=== PATIENT | male | born 1955 | race Caucasian/White ===

== ENCOUNTER 2019-04-07 05:35 | Inpatient (IN) | payer OTHER ==
[~2019-04-07 05:35] MED LIST: Buffered Lidocaine 1% SYRIN* 1 ML/SYRINGE INTRADERM ONE
--- OUTSIDE RECORDS SUMMARY | 2019-04-07 05:38 | XMS REPORT | Continuity of Care Document ---
:1955 External Reference #:[id number] Author Name Chuck Rodriguez DO [facility] (transmitted by agent of provider Ely Morgan) Address [address] [place] [address] Care Team Providers Name Role Phone Axel Raza MD - Internal Medicine Care Team Information [employer] Consultant Problems Active Problems Provider Date Aortic valve disorder Keshawn Flores M.D., [facility], Onset: 01/22/2014 [facility] Chronic ischemic heart disease Keshawn Flores M.D., [facility], Onset: 01/22/2014 [facility] Essential hypertension Keshawn Flores M.D., [facility], Onset: 01/22/2014 [facility] Hyperlipidemia Keshawn Flores M.D., [facility], Onset: 01/22/2014 [facility] Obstructive sleep apnea syndrome Steffi Brewer MD Onset: 10/08/2014 Morbid obesity Steffi Brewer MD Onset: 10/08/2014 Palpitations Keshawn Flores M.D., [facility], Onset: 11/04/2014 [facility] Obesity Keshawn Flores M.D., [facility], Onset: 11/04/2014 [facility] Osteoarthritis of knee Augustine Huff M.D. Onset: 12/09/2014 Localized, primary osteoarthritis Augustine Huff M.D. Onset: 01/13/2015 Heart valve replacement Keshawn Flores M.D., [facility], Onset: 10/04/2016 [facility] Atherosclerotic heart disease of Keshawn Flores M.D., [facility], Onset: 10/04/2016 [place] coronary artery without angina [facility] pectoris Arteriosclerosis of coronary artery Keshawn Flores M.D., [facility], Onset: 2017 bypass graft [facility] Aftercare following joint replacement JACOB Krishna Onset: 10/11/2016 surgery Social History Type Date Description Comments Sex Unknown Tobacco Use Start: Unknown End: Former Cigarette Smoker Unknown Smoking Status Reviewed: 03/04/19 Former Cigarette Smoker ETOH Use daily Tobacco Use Start: Unknown End: Patient is a former quit in 2003, Unknown smoker smoked for 30yrs 1PPD Recreational Drug Use Denies Drug Use Exercise Type/Frequency Exercises regularly Exercise Type/Frequency Bikes 5 times a week 50-60 min daily Allergies, Adverse Reactions, Alerts Active Allergies Reaction Severity Comments Date Keflex HIVES 02/23/2012 Medications Active Medications SIG Qnty Indications Ordering Provider Date Lisinopril 1 po qd 90tabs Keshawn Flores, 08/05/2012 5mg Tablets Bahman, [facility], [facility] Metoprolol Succinate 3 tabs by mouth Unknown ER every day 50mg Tablets ER 24HR Simvastatin 1 by mouth every 90tabs Unknown 40mg Tablets night at bedtime Omeprazole 1 by mouth every 90caps Unknown 40mg Capsules day DR Fish Oil daily Unknown Aspirin 1 by mouth every Unknown 81mg Tablets day Multivitamins 1 by mouth every Unknown Capsules day Vitamin C 1 by mouth every Unknown 500mg Tablets day Lorazepam prn Unknown 0.5mg Tablets Medications Administered in Office Medication SIG Qnty Indications Ordering Provider Date Synvisc Or Synvisc-One TONJA Preston 01/20/2015 Injection 1 MG Injection Hyaluron Or Augustine Huff M.D. 01/20/2015 Brody,Orthovisc,For Intra-Articular Inj Per Dose Injection Hyaluron Or Augustine Huff M.D. 01/20/2015 Brody,Orthovisc,For Intra-Articular Inj Per Dose Injection Synvisc Or Synvisc-One Augustine Huff M.D. 01/13/2015 Injection 1 MG Injection Synvisc Or Synvisc-One TONJA Preston 01/06/2015 Injection 1 MG Injection Depomedrol 80MG Augustine Huff M.D. 04/05/2011 Injection Depomedrol 80MG Augustine Huff M.D. 01/06/2011 Injection Depomedrol 80MG BEVERLEY Cross 10/11/2010 Injection Depomedrol 80MG Augustine Huff M.D. 06/30/2010 Injection Depomedrol 40MG Beverley Randle RPA-Irena 01/28/2010 Injection Depomedrol 40MG Aurelio Parikh, 12/01/2009 Injection R.S.A.-O Depomedrol 80MG Aurelio Parikh, 10/26/2009 Injection R.S.A.-O Depomedrol 40MG Aurelio Parikh, 10/14/2009 Injection R.S.A.-O Immunizations CPT Code Status Date Vaccine Lot # [id number] Given 10/08/2014 Fluvirin Im 3Yrs And Older Vital Signs Date Vital Result Comment 03/04/2019 9:57am Height 68.5 inches 5'8.50" Weight 241.00 lb with shoes Heart Rate 77 /min BP Systolic Sitting 140 mmHg Ra BP Diastolic Sitting 90 mmHg Ra BP Systolic Standing 138 mmHg Ra BP Diastolic Standing 86 mmHg Ra BMI (Body Mass Index) 36.1 kg/m2 Ejection Fraction 60% Echo 07/04/12 02/05/2019 11:09am Height 68.5 inches 5'8.50" Weight 252.00 lb Heart Rate 77 /min BP Systolic 148 mmHg BP Diastolic 88 mmHg Body Temperature 98.6 F Pain Level 5 BMI (Body Mass Index) 37.8 kg/m2 Results Description No Information Available Procedures Date Code Description Status 03/04/2019 40060 EKG Tracing & Interpretation Completed Medical Devices Description No Information Available Encounters Description No Information Available Assessments Date Code Description Provider 03/04/2019 Z01.810 Encounter for preprocedural Chuck Rodriguez DO [facility] cardiovascular examination 03/04/2019 Z95.2 Presence of prosthetic heart valve Chuck Rodriguez DO [facility] 03/04/2019 Z95.1 Presence of aortocoronary bypass graft Chuck Rodriguez DO [facility] 03/04/2019 I25.10 Atherosclerotic heart disease of [place] Chuck Rodriguez DO [facility] coronary artery without angina pectoris 03/04/2019 E66.8 Other obesity Chuck Rodriguez DO [facility] 03/04/2019 I10 Essential (primary) hypertension Chuck Rodriguez DO [facility] 03/04/2019 E78.5 Hyperlipidemia, unspecified Chuck Rodriguez, DO [facility] 03/04/2019 R73.01 Impaired fasting glucose Chuck Rodriguez, DO [facility] 02/05/2019 M17.12 Unilateral primary osteoarthritis, left Augustine Huff M.D. knee 02/05/2019 Z47.1 Aftercare following joint replacement Augustine Huff M.D. surgery Plan of Treatment Future Appointment(s):03/13/2019 11:00 am - Traveling ECHO 2 at [facility]04/07/2019 7:30 am - Augustine Huff M.D. at [facility] at [id number]/04/2019 - Chuck Rodriguez, DO [id number] Encounter for preprocedural cardiovascular examinationFollow up:f/u 3 ptyywC61.2 Presence of prosthetic heart valveNew Orders:Echocardiogram, Scheduled: 03/12/19Z95.1 Presence of aortocoronary bypass zdzliZ00.10 Atherosclerotic heart disease of [place] coronary artery without angina apsuycocG54.8 Other [id number] Essential ( primary) pqqqkjccyzdmK91.5 Hyperlipidemia, ybrpafvzpksM42.01 Impaired fasting glucose Functional Status Description No Information Available Mental Status Description No Information Available Referrals Description No Information Available
--- OUTSIDE RECORDS SUMMARY | 2019-04-07 05:38 | XMS REPORT | Summary of Care ---
:1955 Author Organization [facility] Address [address] [facility] [place] [address] Care Team Providers Name Role Phone Axel Raza Primary Care Provider Reason for Visit Reason Comments Lab Work Only done 02/18/19, A1c 6.0, is Pt considered a diabetic Hypertension f/u BP 124/72 Knee Pain having left surgery 04/07/19, having a pre-op with cardio next week and to see you 03/25/19 Sleep Apnea f/u, uses CPAP at most three times a week Back Pain threw his back out over the weekend doing yard work, Reference #: [id number] I-stop done Encounter Details Date Type Department Care Team Description 02/25/2019 Office Visit [place] [facility] Axel Raza MD Prediabetes (Primary Dx); Medicine [address] Essential hypertension; [address] [place] [address] Coronary artery disease involving coronary bypass graft of [place] heart without angina pectoris; [place] [address] Tick bite, initial encounter; [phone] Primary osteoarthritis of left knee (Fax) Allergies Active Allergy Reactions Severity Noted Date Comments Keflex Swelling 01/17/2010 documented as of this encounter (statuses as of 02/25/2019) Medications Medication Sig Dispensed Refills Start Date End Date Status Luebbering-3 Fatty Take by 0 Active Acids (FISH OIL) mouth DAILY. 1000 MG Oral Cap Multiple Vitamin Take 1 Tab by 0 Active (MULTI VITAMIN mouth DAILY. MENS) Oral Tab ascorbic acid 500 Take 500 mg 0 Active MG Oral Tab by mouth DAILY. aspirin (ECOTRIN) Take 81 mg by 0 Active 81 MG Oral Tab EC mouth DAILY. Multiple Take by 0 Active Vitamins-Minerals mouth DAILY. (ICAPS AREDS 2) Oral Cap lisinopril TAKE ONE 90 Tab 3 04/03/2018 Active (PRINIVIL, TABLET ONCE ZESTRIL) 5 MG DAILY Oral Tab LORazepam Take 1 Tab by 30 Tab 0 06/11/2018 Active (ATIVAN) 0.5 MG mouth EVERY Oral Tab EIGHT HOURS NEEDED (anxiety). MDD 3 simvastatin TAKE ONE 90 Tab 3 08/13/2018 Active (ZOCOR) 40 MG TABLET BY Oral Tab MOUTH AT BEDTIME Omeprazole 40 MG TAKE ONE 90 Cap 3 10/07/2018 Active Oral CAPSULE CAPSULE BY DELAYED RELEASE MOUTH EVERY DAY doxycycline Take 200 mg 14 Tab 0 10/15/2018 Active (VIBRAMYCIN) 100 by mouth MG Oral Tab DIRECTED. As needed for tick bites metoprolol Take 3 Tabs 270 Tab 3 12/09/2018 Active succinate (TOPROL by mouth XL) 50 MG Oral DAILY. TABLET SR 24 HR HYDROcodone-aceta Take 1-2 Tabs 100 Tab 0 02/25/2019 Active minophen (NORCO) by mouth 5-325 MG Oral Tab EVERY 4-6 HOURS PRN (for pain). MDD 6 HYDROcodone-aceta Take 1-2 Tabs 100 Tab 0 12/09/2018 Discontinued minophen (NORCO) by mouth 9 (Reorder) 5-325 MG Oral Tab EVERY 4-6 HOURS PRN (for pain). MDD 6 documented as of this encounter (statuses as of 02/25/2019) Active Problems Problem Noted Date BMI 35.0-35.9,adult 02/24/2013 Overview: This patient's BMI has been calculated and is above average, and BMI management plan is completed. General patient education discussion including: obesity-related excess mortality, weight loss link to reduction of risk factors for cardiac and other diseases, importance of long-term maintenance treatment in weight loss CAD (coronary artery disease) 06/24/2012 S/P AVR 05/27/2012 BPH (benign prostatic hyperplasia) 08/16/2010 Dermatitis 10/10/2007 Lateral epicondylitis 08/07/2007 DJD (Degenerative Joint Disease) of Knee 08/07/2007 Overview: Right Allergic rhinitis 08/07/2007 GERD (gastroesophageal reflux disease) 08/07/2007 DJD (degenerative joint disease) 08/07/2007 Overview: Shoulders Hypercholesteremia 07/31/2007 Colitis 05/09/2007 Essential hypertension Sleep apnea Overview: Wearing CPAP nightly Macular degeneration documented as of this encounter (statuses as of 02/25/2019) Resolved Problems Problem Noted Date Resolved Date BPH (benign prostatic hypertrophy) 08/07/2007 08/16/2010 Overview: Replaced inactive diagnosis Tobacco use disorder 07/31/2007 04/07/2010 Aortic stenosis 03/12/2007 11/04/2013 documented as of this encounter (statuses as of 02/25/2019) Immunizations Name Administration Dates Next Due Depo Medrol (40mg) 10/28/2014, 02/25/2014, 02/24/2013, 08/26/2012, 02/20/2012, 11/13/2011, 08/15/2011, 05/03/2011, 05/03/2011, 08/16/2010, 08/02/2009, 02/15/2009, 08/12/2008, 08/12/2008, 08/07/2007 Influenza (IM) Preservative Free 02/06/2018, 01/29/2017, 03/02/2015, 02/24/2013, 02/20/2012, 04/26/2011, 04/07/2010, 02/15/2009 Influenza (IM) W/Pres 03/23/2016, 02/25/2014 Influenza Vaccine 65 Yrs + 02/25/2019 Influenza Virus Vaccine - Whole 03/06/2006 Pneumococcal Conjugate(13 Valent) 10/15/2018 TDAP Vaccine 02/06/2018, 02/12/2008 ZOSTER (ZOSTAVAX) VACCINE 03/24/2014 documented as of this encounter Social History Tobacco Use Types Packs/Day Years Used Date Former Smoker Quit: 05/13/2002 Smokeless Tobacco: Never Used Alcohol Use Drinks/Week oz/Week Comments Yes 21 Cans of beer 21.0 Drinks several cans of beer a day/per 03/07/2007 note Sex Assigned at Date Recorded Not on file Job Start Date Occupation Industry Not on file Not on file Not on file Travel History Travel Start Travel End No recent travel history available. documented as of this encounter Last Filed Vital Signs Vital Sign Reading Time Taken Comments Blood Pressure 124/72 02/25/2019 9:11 AM EDT Pulse 66 02/25/2019 9:11 AM EDT Temperature - - Respiratory Rate - - Oxygen Saturation - - Inhaled Oxygen Concentration - - Weight 110.2 kg (243 lb) 02/25/2019 9:11 AM EDT Height 172.7 cm (5' 8") 02/25/2019 9:11 AM EDT Body Mass Index 36.95 02/25/2019 9:11 AM EDT documented in this encounter Patient Instructions Patient InstructionsAxel Raza MD - 02/25/2019 9:00 AM EDTContinue same medicines Keep appointment in Mar.Electronically signed by Axel Raza MD at 2018 9:42 AM EDT documented in this encounter Progress Notes Axel Raza MD - 02/25/2019 9:00 AM EDT PATIENT: Gianluca Munguia : 1955 DATE OF SERVICE: 02/25/2019 CHIEF COMPLAINT: Chief Complaint Patient presents with Lab Work Only done 02/18/19, A1c 6.0, is Pt considered a diabetic Hypertension f/u BP 124/72 Knee Pain having left surgery 04/07/19, having a pre-op with cardio next week and to see you 03/25/19 Sleep Apnea f/u, uses CPAP at most three times a week Back Pain threw his back out over the weekend doing yard work, Reference #: [id number] I -stop done Subjective HISTORY OF PRESENT ILLNESS: Gianluca Munguia is a 63-y.o. male. HPI Several issues to address. He will be having left knee surgery with Dr. Huff on April 07. Micaela check preop testing March 25. He will be having cardiology preop next week. Denies any chest discomfort with exertion or dyspnea with exertion. No palpitations faintness or syncope. Wears a CPAP but only 3 times a week. Urged him to use it daily. He states it is hard to tell if he feels better when he wears it. Told him he could reduce the chance of other cardiac occurrences like atrial fibrillation. He had atrial fibrillation in 2012 after his open heart surgery where he hadbioprosthetic aortic valve and CABG x1 with CARO to the LAD. No atrial fibrillation since then. Not on anticoagulation therapy. Had a other more annoying medical occurrences. Recently had tooth fall out. Tick bite inner right thigh. Took 2 doxy at once. Was attached <24 hrs. the insect was moving when his removed it from his skin. Had labs done recently as listed below, and results reviewed with patient. The results are satisfactory. Any abnormalities indicated are insignificant and/or stable. Hemoglobin A1c is in the prediabetes zone. Lab on 02/18/2019 Component Date Value Ref Range Status Glycohemoglobin A1C 02/18/2019 6.0* <=5.6 % Final Normal*: <=5.6% Pre Diabetes* Risk: 5.7-6.4% Diabetes* Risk: >=6.5% Glycemic Goals for Adult Diabetes*: <7.0% *(Adult Ranges)[place] [employer] Association, Standards of Medical Care in Diabetes, 2018 TSH 02/18/2019 1.39 0.47 - 4.68 uIu/ml Final Cholesterol 02/18/2019 144 <200 mg/dl Final HDL Cholesterol 02/18/2019 47 >40 mg/dl Final Triglycerides 02/18/2019 144 <150 mg/dl Final LDL Cholesterol 02/18/2019 68 <100 MG/DL Final Cholesterol / HDL Ratio 02/18/2019 3.1 RATIO Final LDL / HDL Ratio 02/18/2019 1.5 Final Non-HDL Cholesterol 02/18/2019 97 0 - 130 MG/DL Final Sodium 02/18/2019 136 134 - 145 mmol/L Final Potassium 02/18/2019 4.2 3.5 - 5.1 mmol/L Final Chloride 02/18/2019 103 98 - 107 mmol/L Final CO2 02/18/2019 24 22 - 30 mmol/L Final Calcium 02/18/2019 9.6 8.3 - 10.1 mg/dl Final Albumin 02/18/2019 4.4 3.5 - 5.0 g/dl Final BUN 02/18/2019 16 9 - 20 mg/dl Final Creatinine 02/18/2019 1.1 0.8 - 1.5 mg/dl Final Glucose 02/18/2019 119* 70 - 99 mg/dl Final Total Protein 02/18/2019 7.3 6.3 - 8.2 g/dl Final Total Bilirubin 02/18/2019 0.7 0.0 - 1.1 MG/DL Final AST 02/18/2019 41 17 - 59 U/L Final ALT 02/18/2019 47 21 - 72 U/L Final Alkaline Phosphatase 02/18/2019 50 40 - 150 U/L Final eGFR 02/18/2019 >60 See Interpretation Below ml/min/1.73ml Sq Final Estimated GFR Interpretation: Above 60ml/min/1.73m2 = Normal Renal Function 30-59 ml/min/1.73m2 = Stage 3 Chronic Kidney Disease 15-29 ml/min/1.73m2 = Stage 4 Chronic Kidney Disease Less than 15 ml/min/1.73m2 = Stage 5 Chronic Kidney Disease The GFR value is calculated using the Modification of Diet in Renal Disease ( MDRD) Study Equation which can be found at: https://www.kidney.org/content/jnjj-tjrrz-cazjkmiy BUN/Creatinine Ratio 02/18/2019 15 6 - 22 RATIO Final Anion Gap 02/18/2019 9 3 - 11 mmol/L Final A/G Ratio 02/18/2019 1.5 0.8 - 2.0 ratio Final WBC Count 02/18/2019 7.02 4.23 - 9.07 K/uL Final RBC Count 02/18/2019 4.02* 4.30 - 5.89 M/UL Final Hemoglobin 02/18/2019 13.3* 13.7 - 17.5 g/dL Final Hematocrit 02/18/2019 41.0 40.1 - 51.0 % Final MCV 02/18/2019 102.0* 79.0 - 92.2 FL Final MCH 02/18/2019 33.1* 25.7 - 32.2 PG Final MCHC 02/18/2019 32.4 32.3 - 36.5 g/dL Final Platelet Count 02/18/2019 173 163 - 337 K/uL Final MPV 02/18/2019 11.2 9.4 - 12.4 FL Final RDW 02/18/2019 12.8 11.6 - 14.4 % Final Neutrophil % 02/18/2019 62.7 34.0 - 67.9 % Final Lymphocyte % 02/18/2019 20.2* 21.8 - 53.1 % Final Monocyte % 02/18/2019 9.4 5.3 - 12.2 % Final Eosinophil % 02/18/2019 7.0 0.8 - 7.0 % Final Basophil % 02/18/2019 0.4 0.2 - 1.2 % Final nRBC % 02/18/2019 0.0 0.0 - 0.2 % Final Neutrophil # 02/18/2019 4.40 1.78 - 5.38 K/UL Final Lymphocyte # 02/18/2019 1.42 1.32 - 3.57 K/UL Final Monocyte # 02/18/2019 0.66 0.30 - 0.82 K/UL Final Eosinophil # 02/18/2019 0.49 0.04 - 0.54 K/UL Final Basophil # 02/18/2019 0.03 0.01 - 0.08 K/UL Final Immature Gran % 02/18/2019 0.3 0.0 - 0.4 % Final Immature Gran # 02/18/2019 0.02 0.00 - 0.03 K/uL Final NRBC # 02/18/2019 0.00 0.00 - 0.12 K/uL Final Past Medical History: Diagnosis Date Allergic rhinitis Aortic stenosis 03/12/2007 BPH Colitis 05/09/2007 Colonic polyp DJD (degenerative joint disease) shoulders DJD (Degenerative Joint Disease) of Knee right GERD (gastroesophageal reflux disease) Hypercholesteremia 07/31/2007 Hypertension Lateral epicondylitis Macular degeneration Sleep apnea Tobacco use disorder 07/31/2007 Family History Problem Relation Age of Onset Heart Mother CHF, CVA Hypertension Mother Diabetes Mother Heart Father CongestivevHeart Failure Cancer Father Stomach Current Outpatient Medications Medication Sig ascorbic acid 500 MG Oral Tab Take 500 mg by mouth DAILY. aspirin (ECOTRIN) 81 MG Oral Tab EC Take 81 mg by mouth DAILY. doxycycline (VIBRAMYCIN) 100 MG Oral Tab Take 200 mg by mouth DIRECTED. As needed for tickbites HYDROcodone-acetaminophen (NORCO) 5-325 MG Oral Tab Take 1-2 Tabs by mouth EVERY 4-6 HOURS PRN (for pain). MDD 6 lisinopril (PRINIVIL, ZESTRIL) 5 MG Oral Tab TAKE ONE TABLET ONCE DAILY LORazepam (ATIVAN) 0.5 MG Oral Tab Take 1 Tab by mouth EVERY EIGHT HOURS NEEDED (anxiety).MDD 3 metoprolol succinate (TOPROL XL) 50 MG Oral TABLET SR 24 HR Take 3 Tabs by mouth DAILY. Multiple Vitamin (MULTI VITAMIN MENS) Oral Tab Take 1 Tab by mouth DAILY. Multiple Vitamins-Minerals (ICAPS AREDS 2) Oral Cap Take by mouth DAILY. Luebbering-3 Fatty Acids (FISH OIL) 1000 MG Oral Cap Take by mouth DAILY. Omeprazole 40 MG Oral CAPSULE DELAYED RELEASE TAKE ONE CAPSULE BY MOUTH EVERY DAY simvastatin (ZOCOR) 40 MG Oral Tab TAKE ONE TABLET BY MOUTH AT BEDTIME No current facility-administered medications for this visit. Allergies Allergen Reactions Keflex Swelling Social History Socioeconomic History Marital status: Spouse name: Not on file Number of children: Not on file Years of education: Not on file Highest education level: Not on file Occupational History Not on file Social Needs Financial resource strain: Not on file Food insecurity: Worry: Not on file Inability: Not on file Transportation needs: Medical: Not on file Non-medical: Not on file Tobacco Use Smoking status: Former Smoker Last attempt to quit: 05/13/2002 Years since quittin.8 Smokeless tobacco: Never Used Substance and Sexual Activity Alcohol use: Yes Alcohol/week: 21.0 standard drinks Types: 21 Cans of beer per week Comment: Drinks several cans of beer a day/per 03/07/2007 note Drug use: No Sexual activity: Yes Partners: Female Lifestyle Physical activity: Days per week: Not on file Minutes per session: Not on file Stress: Not on file Relationships Social connections: Talks on phone: Not on file Gets together: Not on file Attends sikh service: Not on file Active member of club or organization: Not on file Attends meetings of clubs or organizations: Not on file Relationship status: Not on file Intimate partner violence: Fear of current or ex partner: Not on file Emotionally abused: Not on file Physically abused: Not on file Forced sexual activity: Not on file Other Topics Concern Back Care Not Asked Bike Helmet Not Asked Blood Transfusions Not Asked Caffeine Concern Not Asked 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 Caused a great deal of upper extremity degenerative change in the shoulders and left lateral epicondyle REVIEW OF SYSTEMS: Review of Systems Constitutional: Negative for malaise/fatigue. HENT: Negative for congestion. Eyes: Negative for blurred vision. Respiratory: Negative for shortness of breath. Cardiovascular: Negative for chest pain. Works out daily. Gastrointestinal: Negative for abdominal pain. Genitourinary: Negative for frequency. Musculoskeletal: Positive for joint pain. Skin: Negative for rash. Neurological: Negative for dizziness, seizures and loss of consciousness. Endo/Heme/Allergies: Negative for polydipsia. Psychiatric/Behavioral: Negative for depression. The patient is not nervous/ anxious. Objective PHYSICAL EXAM: VITALS: BP 124/72 | Pulse 66 | Ht 5' 8" (1.727 m) | Wt 243 lb (110.2 kg) | BMI 36.95 kg/mBody mass index is 36.95 kg/m. Physical Exam Alert, oriented, in no acute distress. Vitals as above. HEENT: Normocephalic, atraumatic. JOSE, EOMI. Mouth and ears unremarkable. Neck: No palpable lymphadenopathy in the submandibular, submental, anterior cervical, posterior cervical, or occipital chains, nor in the supraclavicular spaces. No JVD, thyromegaly. LUNGS: clear. HEART: Regular rate and rhythm. ABDOMEN: positive bowel sounds, soft, nontender, no hepatosplenomegaly, masses or bruits. EXTREMITIES: no cyanosis, clubbing, or edema. Left knee with degenerative changes. Right inner thigh with evidence of recent insect bite but no erythema chronicum migrans rash ASSESSMENT / IMPRESSION: ICD-9-CM ICD-10-CM 1. Prediabetesstable. Urged him to continue his efforts at diet and exercise 790.29 R73.03 MICROALBUMIN, RANDOM URINE W/ CREATININE 2. Essential hypertensioncontrolled 401.9 I10 3. Coronary artery disease involving coronary bypass graft of [place] heart without angina pectorisstable 414.05 I25.810 4. Tick bite, initial encounterdo not feel he needs further therapy 919.4 W57.XXXA E906.4 5. Primary osteoarthritis of left kneeagree with proceeding with surgery for total knee replacement. 715.16 M17.12 Patient Instructions Continue same medicines Keep appointment in Mar. Author: Axel Raza MD 02/25/2019 09:24 documented in this encounter Plan of Treatment Date Type Specialty Care Team Description 03/25/2019 Office Visit Internal Medicine Axel Raza MD [address] [place] [address] [phone] Name Type Priority Associated Diagnoses Date/Time MICROALBUMIN, RANDOM URINE Lab Routine Prediabetes 02/25/2019 8:00 AM EDT W/ CREATININE Health Maintenance Due Date Last Done Comments ZOSTER IMMUNIZATION SERIES 05/19/2014 03/24/2014 (2 of 3) AAA SCREENING/SURVEILLANCE 2018 INFLUENZA VACCINE (#1) 2019 02/06/2018, 01/29/2017, 03/23/2016, Additional history exists DEPRESSION SCREENING 10/16/2019 10/15/2018 FALL RISK ASSESSMENT 10/16/2019 10/15/2018, 10/15/2018 PNEUMOCOCCAL 65+YRS (2 of 2 10/16/2019 10/15/2018 - PPSV23) DIABETES SCREENING 02/19/2020 02/18/2019, 02/18/2019, 10/08/2018, Additional history exists LIPID DISORDER SCREENING 02/19/2020 02/18/2019, 10/08/2018, 08/13/2018, Additional history exists COLONOSCOPY SCREENING 02/13/2022 02/13/2017, 02/13/2017, 02/15/2012, Additional history exists HPV IMMUNIZATION SERIES Aged Out No longer eligible based on patient's age to complete this topic MENINGOCOCCAL VACCINE IMM Aged Out No longer eligible based on patient's age to complete this topic documented as of this encounter Goals Goal Patient Goal Associated Recent Patient-Stated? Author Type Problems Progress Blood Pressure Blood Pressure Essential 124/72 No Luz Marina, < 140/90 hypertension (02/25/2019 MD Axel 9:11 AM EDT) Note: Hypertension Care Plan Based on the patient's clinical history and according to JNC 8 guidelines target blood pressure goal is less than 140/90. Based on the patient's last blood pressure of BP: 130/82 mmHg the patient is at at goal. As your provider, it is important that I advise you regarding: your current medications and help you with any challenges you may face taking your medications as directed (ex. instructions, cost, side effects, and interactions). lifestyle changes: exercise, weight reduction, diet, dietary sodium reduction , medication compliance and moderation of alcohol consumption your clinical goals and how you can achieve success: weight reduction, exercise plan and diet improvements medication management: adjusted medications as appropriate patient education/self-management tools provided: Current self-management tools adequate To successfully manage my Hypertension I will: monitor my blood pressure daily, understanding that my goal is less than 140/ 90 per my healthcare provider's recommendation. I will schedule an appointment with my provider if consistent abnormal readings greater than 160/100. take medications every day as prescribed by my healthcare provider and if unable to take them I will discuss with my provider. monitor for symptoms of chest pain, chest tightness/pressure, irregular heartbeat, persistent dizziness, radiating arm pain, and neck or jaw pain. If any of these symptoms are noticed I will seek medical attention immediately by calling 911 exercise/walk 1 hour 5 day(s) per week. If I experience chest pain, chest tightness, or shortness of breath, I will seek medical attention immediately. follow a diet rich in fruits, vegetables, and low-fat dairy products with reduced content of saturated & total fat. I will reduce my sodium intake daily. An example is the DASH diet. To obtain more information please refer to the DASH Eating Plan listed in Educational Resources. record my blood pressure results. [employer] is safe and secure way for you to do this in your medical record online. try to obtain an ideal body weight. My recent weight was Weight: 246 lb ( 111.585 kg). My weight loss goal for my next office visit is 241 lb. limit alcohol consumption. For men two drinks per day and women one drink per day. if currently smoking, will discuss how to quit smoking with my healthcare provider and work towards quitting. Educational Resources: National Heart, Lung, & Blood [place] http://nhlbi.nih.gov/hbp/index.html The DASH Diet Eating Plan http://www.nhlbi.nih.gov/health/health-topics/ topics/dash/ Academy of Nutrition & DIetetics http://eatright.org National Smoking Cessation Site http://smokefree.gov Blood Pressure < Blood Pressure 124/72 (02/25/2019 9:11 No Axel Raza MD 140/90 AM EDT) Note: This is an individualized treatment (blood pressure) goal for Gianluca Munguia: Displayed above (on the left) is your goal for blood pressure control. Your most recent blood pressure is also shown above, on the right. You should try to achieve blood pressures that are lower than your goal listed above (on the left). Weight loss vs. 18 mo Lifestyle 8 (02/25/2019 9:11 AM EDT) Axel Restrepo MD max (lbs) >= 10 Note: This is an individualized lifestyle goal for Gianluca Munguia: Your body mass index (BMI) is more than 30. You should lose weight. A reasonable starting goal is to lose 10 pounds. Displayed above is how many pounds you have lost thus far towards your 10 pound weight loss goal. Take all prescribed medications as directed Self-management Axel Restrepo MD Note: This is an individualized self-management goal for Gianluca Munguia: Please take all prescribed medications as directed. 1. Do not skip doses. If you cannot afford your medications, talk with your doctor. 2. Use a pill reminder system such as a pill box if needed. Your pharmacist can help you with this. 3. Contact your Pharmacy 5 days before your medication runs out. If you cannot take your medications for any reasons, talk with your doctor. 4. Please bring all of your medication bottles and inhalers (or a list of all your medications/inhalers) with you to every visit. Potential barriers to meeting all of your care plan goals will continue to be addressed on an ongoing basis. documented as of this encounter Results Not on filedocumented in this encounter Visit Diagnoses Diagnosis Prediabetes - Primary Other abnormal glucose Essential hypertension Unspecified essential hypertension Coronary artery disease involving coronary bypass graft of [place] heart without angina pectoris Tick bite, initial encounter Primary osteoarthritis of left knee Primary localized osteoarthrosis, lower leg documented in this encounter Insurance Payer Benefit Plan / Subscriber ID Effective Dates Phone Address Type Group [employer]CIAL C[employer]NA MVP xxxxxxxxxxx 2007-Present [employer] documented as of this encounter
--- OUTSIDE RECORDS SUMMARY | 2019-04-07 05:38 | XMS REPORT | Summary of Care ---
:1955 Author Organization [facility] Address [address] [facility] [place] [address] Care Team Providers Name Role Phone Axel Raza Primary Care Provider Reason for Visit Reason Comments Pre-op Exam left knee surgery on 04/07 at [facility] Dr. Huff; Cardiac clearance done (ekg and Echo); xray results, not sure of blood work done; question what meds need to stop prior to surgery Hypertension f/u BP: 132/68 Encounter Details Date Type Department Care Team Description 03/25/2019 Office Visit [place] [facility] Axel aRza MD Primary osteoarthritis of left knee (Primary Dx); Medicine [address] [facility] Coronary artery disease involving coronary bypass graft of ione heart without angina pectoris; [address] [place] [address] Essential hypertension; [place] [address] Prediabetes; [phone] Hypercholesteremia; (Fax) S/P AVR; Obstructive sleep apnea Allergies Active Allergy Reactions Severity Noted Date Comments Keflex Swelling 01/17/2010 documented as of this encounter (statuses as of 03/25/2019) Medications Medication Sig Dispensed Refills Start Date End Date Status Underwood-3 Fatty Acids Take by mouth 0 Active (FISH OIL) 1000 MG DAILY. Oral Cap Multiple Vitamin Take 1 Tab by 0 Active (MULTI VITAMIN MENS) mouth DAILY. Oral Tab ascorbic acid 500 MG Take 500 mg by 0 Active Oral Tab mouth DAILY. aspirin (ECOTRIN) 81 Take 81 mg by 0 Active MG Oral Tab EC mouth DAILY. Multiple Take by mouth 0 Active Vitamins-Minerals DAILY. (ICAPS AREDS 2) Oral Cap lisinopril (PRINIVIL, TAKE ONE TABLET 90 Tab 3 04/03/2018 Active ZESTRIL) 5 MG Oral Tab ONCE DAILY LORazepam (ATIVAN) 0.5 Take 1 Tab by 30 Tab 0 06/11/2018 Active MG Oral Tab mouth EVERY EIGHT HOURS NEEDED (anxiety). MDD 3 simvastatin (ZOCOR) 40 TAKE ONE TABLET BY 90 Tab 3 08/13/2018 Active MG Oral Tab MOUTH AT BEDTIME Omeprazole 40 MG Oral TAKE ONE CAPSULE 90 Cap 3 10/07/2018 Active CAPSULE DELAYED BY MOUTH EVERY DAY RELEASE doxycycline Take 200 mg by 14 Tab 0 10/15/2018 Active (VIBRAMYCIN) 100 MG mouth DIRECTED. Oral Tab As needed for tick bites metoprolol succinate Take 3 Tabs by 270 Tab 3 12/09/2018 Active (TOPROL XL) 50 MG Oral mouth DAILY. TABLET SR 24 HR HYDROcodone-acetaminop Take 1-2 Tabs by 100 Tab 0 02/25/2019 Active hen (NORCO) 5-325 MG mouth EVERY 4-6 Oral Tab HOURS PRN (for pain). MDD 6 Tadalafil 5 MG Oral Take 1 Tab by 30 Tab 2 03/05/2019 Active Tab mouth DAILY. documented as of this encounter (statuses as of 03/25/2019) Active Problems Problem Noted Date BMI 35.0-35.9,adult [...] as of this encounter (statuses as of 03/25/2019) Resolved Problems Problem Noted Date Resolved Date BPH (benign prostatic hypertrophy) 08/07/2007 08/16/2010 Overview: Replaced inactive diagnosis Tobacco use disorder 07/31/2007 04/07/2010 Aortic stenosis 03/12/2007 11/04/2013 documented as of this encounter (statuses as of 03/25/2019) Immunizations Name Administration Dates Next Due Depo [...] Sign Reading Time Taken Comments Blood Pressure 132/68 03/25/2019 2:39 PM EST Pulse 78 03/25/2019 2:39 PM EST Temperature - - Respiratory Rate - - Oxygen Saturation - - Inhaled Oxygen Concentration - - Weight 109.8 kg (242 lb) 03/25/2019 2:39 PM EST Height - - Body Mass Index 36.8 02/25/2019 9:11 AM EDT documented in this encounter Patient Instructions Patient InstructionsAxel Raza MD - 03/25/2019 2:30 PM ESTContinue same medicines You are stable and cleared to proceed with knee surgery follow up after you have recovered from surgery documented in this encounter Progress Notes Axel Raza MD - 03/25/2019 2:30 PM EST PATIENT: Gianluca Munguia : 1955 DATE OF SERVICE: 03/25/2019 CHIEF COMPLAINT: Chief Complaint Patient presents with Pre-op Exam left knee surgery on 04/07 at [facility] Dr. Huff; Cardiac clearance done (ekg and Echo); xray results, not sure of blood work done; question what meds need to stop prior to surgery Hypertension f/u BP: 132/68 Subjective HISTORY OF PRESENT ILLNESS: Gianluca Munguia is a 63-y.o. male. HPI He is having left knee replacement with Dr. Huff soon. Has history of Coronary artery disease, aortic valve replacement with bioprosthetic valve, along with CARO to the LAD in 2011, hypertension, obstructive sleep apnea, hypercholesterolemia, gastroesophageal reflux. He has exhausted conservative management of his left knee arthritis. He has had no prior problems with anesthesia or sedation. He has had no recent febrile illnesses. He had lab work done today showing H&H 12.6 and 37, MCV 99, normal white count and platelet count. INR is normal as is PTT. Serum chemistries show unremarkable hepatic and renal function, [id number], AST slightly elevated at 47 , urinalysis normal. He had chest x-ray showing no acute cardiopulmonary process. He had echocardiogram showing mild to moderate concentric hypertrophy of the left ventricle, good ejection fraction of 60 to 65%, abnormal septal wall motion due to postoperative valve status but no other segmental wall motion abnormalities. There was a bioprosthetic aortic valve with mild stenosis and a mildly dilated a sending aorta. He states that an EKG was performed but I do not have that tracing today Past Medical History: Diagnosis Date Allergic rhinitis Aortic stenosis 03/12/2007 BPH Colitis 05/09/2007 Colonic polyp DJD (degenerative joint disease) shoulders DJD (Degenerative Joint Disease) of Knee right GERD (gastroesophageal reflux disease) Hypercholesteremia 07/31/2007 Hypertension Lateral epicondylitis Macular degeneration Sleep apnea Tobacco use disorder 07/31/2007 Past Surgical History: Procedure Laterality Date COLONOSCOPY N/A 02/13/2017 Procedure: COLONOSCOPY; Surgeon: Hilario Goode Jr., MD; Location: [facility] GI OR KNEE ARTHROSCOPY Right 04/24/2016 LEFT HEART CARDIAC CATH 05/1995 LEFT HEART CATH,RETROGGRADE,FRO 12/14/11 Cardiac Cath, Left Heart HI CABG, VEIN, TWO 05/07/12 HI KNEE SCOPE,DIAGNOSTIC 08/28/06 right knee HI REPAIR ROTATOR CUFF,ACUTE mult shoulder repairs REPLACE AORTIC VALVE NEC 05/07/12 Family History Problem Relation Age of Onset [...] 2) Oral Cap Take by mouth DAILY. Underwood-3 Fatty Acids (FISH OIL) 1000 MG Oral Cap Take by mouth DAILY. Omeprazole 40 MG Oral CAPSULE DELAYED RELEASE TAKE ONE CAPSULE BY MOUTH EVERY DAY simvastatin (ZOCOR) 40 MG Oral Tab TAKE ONE TABLET BY MOUTH AT BEDTIME Tadalafil 5 MG Oral Tab Take 1 Tab by mouth DAILY. No current facility-administered medications for this visit. 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 Caused a great deal of upper extremity degenerative change in the shoulders and left lateral epicondyle REVIEW OF SYSTEMS: Review of Systems Constitutional: Negative for fever, malaise/fatigue and weight loss. HENT: Negative for congestion and hearing loss. Eyes: Negative for blurred vision. Respiratory: Negative for cough and shortness of breath. Cardiovascular: Negative for chest pain and leg swelling. Genitourinary: Negative for frequency. Musculoskeletal: Positive for joint pain. Skin: Negative for rash. Neurological: Negative for dizziness, focal weakness, seizures, loss of consciousness and headaches. Endo/Heme/Allergies: Negative for polydipsia. Psychiatric/Behavioral: Negative. The patient is not nervous/anxious. Objective PHYSICAL EXAM: VITALS: BP 132/68 (BP Location: Right arm, Patient Position: Sitting) | Pulse 78 | Wt 242 lb (109.8 kg) | BMI 36.80 kg/m Body mass index is 36.8 kg/m . Physical Exam Physical exam reveals a man in no acute distress. Vitals as above. HEENT: Normocephalic, atraumatic. JOSE, EOMI. Mouth and ears unremarkable. There is evidence of prior palatoplasty. Mallampati score is 2. neck: No palpable lymphadenopathy in the submandibular, submental, anterior cervical, posterior cervical, or occipital chains, nor in the supraclavicular spaces. No JVD, thyromegaly. LUNGS: clear. HEART: Regular rate and rhythm. Gr II/ Systolic ejection murmur at left sternal border radiating to aortic area ABDOMEN: positive bowel sounds, soft, nontender, no hepatosplenomegaly, masses or bruits. EXTREMITIES: no cyanosis, clubbing, or edema. Distal radial, dorsalis pedis, and popliteal pulses are intact. SKIN: no suspicious rashes or lesions. MUSCULOSKELETAL: no acutely inflamed joints. Degenerative changes noted in the left knee. Evidenceof prior right knee surgery and bilateral shoulder surgeries NEURO: Alert and oriented, cranial nerves II through XII grossly intact. No focal motor, sensory, or cerebellar findings. Gait and stance within normal limits. ASSESSMENT / IMPRESSION: ICD-9-CM ICD-10-CM 1. Primary osteoarthritis of left knee 715.16 M17.12 2. Coronary artery disease involving coronary bypass graft of ione heart without angina pectoris 414.05 I25.810 3. Essential hypertension 401.9 I10 4. Prediabetes 790.29 R73.03 5. Hypercholesteremia 272.0 E78.00 6. S/P AVR V43.3 Z95.2 7. Obstructive sleep apnea 327.23 G47.33 I believe he is medically optimized and can proceed with elective left knee replacement surgery. His multiple medical conditions are controlled. I told him to stop his aspirin and NSAIDs 1 week prior to his surgery. He should wear his CPAP in the perioperative period. He should have deep vein thrombosis prophylaxis with sequential compression devices on his legs and subcutaneous low molecular weight heparin. Using the [employer] NSQIP surgical risk calculator, he has a 3.5% chance of a complication, a 15.4 chance of requiring placement in a nursing or rehabilitation facility with a predicted length of stay in the hospital of 2.5 days Patient Instructions Continue same medicines You are stable and cleared to proceed with knee surgery follow up after you have recovered from surgery CC: Dr. Huff author: Axel Raza MD 03/25/2019 23:15 documented in this encounter Plan of Treatment Health Maintenance Due Date Last Done Comments ZOSTER IMMUNIZATION SERIES 05/19/2014 03/24/2014 (2 of 3) AAA SCREENING/SURVEILLANCE 2018 DEPRESSION SCREENING 10/16/2019 10/15/2018 FALL RISK ASSESSMENT 10/16/2019 10/15/2018, 10/15/2018 PNEUMOCOCCAL 65+YRS (2 of 2 10/16/2019 10/15/2018 - PPSV23) DIABETES SCREENING 02/19/2020 02/18/2019, 02/18/2019, 10/08/2018, Additional history exists LIPID DISORDER SCREENING 02/19/2020 02/18/2019, 10/08/2018, 08/13/2018, Additional history exists COLONOSCOPY SCREENING 02/13/2022 02/13/2017, 02/13/2017, 02/15/2012, Additional history exists INFLUENZA VACCINE Completed 02/25/2019, 02/06/2018, 01/29/2017, Additional history exists HPV IMMUNIZATION SERIES Aged Out No longer eligible based on patient's age to complete this topic MENINGOCOCCAL VACCINE IMM Aged Out No longer eligible based on patient's age to complete this topic documented as of this encounter Goals Goal Patient Goal Associated Recent Patient-Stated? Author Type Problems Progress Blood Pressure Blood Pressure Essential 132/68 No Luz Marina, < 140/90 hypertension (03/25/2019 MD Axel 2:39 PM EST) Note: Hypertension Care Plan Based on the [...] Educational Resources: National Heart, Lung, & Blood [place] http://nhlbi.nih.gov/hbp/index.html The DASH Diet Eating Plan http://www.nhlbi.nih.gov/health/health-topics/ topics/dash/ Academy of Nutrition & DIetetics http://eatright.org National Smoking Cessation Site http://smokefree.gov Blood Pressure < Blood Pressure 132/68 (03/25/2019 2:39 No Axel Raza MD 140/90 PM EST) Note: This is an individualized treatment (blood pressure) goal for Gianluca Munguia: Displayed above (on the left) is your goal for blood pressure control. Your most recent blood pressure is also shown above, on the right. You should try to achieve blood pressures that are lower than your goal listed above (on the left). Weight loss vs. 18 mo Lifestyle 9 (03/25/2019 2:39 PM EST) Axel Restrepo MD max (lbs) >= 10 [...] filedocumented in this encounter Visit Diagnoses Diagnosis Primary osteoarthritis of left knee - Primary Primary localized osteoarthrosis, lower leg Coronary artery disease involving coronary bypass graft of ione heart without angina pectoris Essential hypertension Unspecified essential hypertension Prediabetes Other abnormal glucose Hypercholesteremia Pure hypercholesterolemia S/P AVR Heart valve replaced by other means Obstructive sleep apnea Obstructive sleep apnea (adult) (pediatric) documented in this encounter Insurance Payer Benefit Plan / Subscriber ID Effective Dates Phone Address Type Group [employer] CIGNA MVP xxxxxxxxxxx 2007-Present C[employer] documented as of this encounter"
[2019-04-07] MEDS ORDERED: Lactated Ringers 1000 ML Bag* 1,000 ML IV SCH (06:00)
[2019-04-07] MEDS ORDERED: ceFAZolin 2 GM in NS PREMIX(*) 2 GM/100 ML BAG IVPB ONE (06:37)
[2019-04-07] MEDS ORDERED: Propofol* 10 MG/ML 20 ML BTL ONE (07:00)
[2019-04-07] MEDS ORDERED: Lidocaine 2% PF * 5 ML VIAL ONE (07:00)
[2019-04-07] MEDS ORDERED: Dexmedetomidine* 200 MCG/2 ML 2 ML VIAL ONE (07:01)
[2019-04-07] MEDS ORDERED: Midazolam* 1 MG/ML 2 ML VIAL (2 MG) ONE ×2 (07:01→08:05)
[2019-04-07] MEDS ORDERED: ROPIVACAINE 5 MG/ML 30 ML BTL (0.5%) ONE (07:01)
[2019-04-07] MEDS ORDERED: Tranexamic Acid 1,000 MG in NS 0.9% 50 ML IV ONE (07:15)
[2019-04-07] MEDS ORDERED: Rocuronium* 10 MG/ML VIAL ONE (07:25)
[2019-04-07] MEDS ORDERED: Succinylcholine* 20 MG/ML 10 ML VIAL ONE (07:25)
[2019-04-07] MEDS ORDERED: fentaNYL* 50 MCG/ML 2 ML VIAL (100 MCG VIAL) ONE (07:25)
[2019-04-07] MEDS ORDERED: Lidocaine 1% INJ* 10 MG/ML 30 ML SDV ONE (07:34)
[2019-04-07] MEDS ORDERED: Bupivacaine 0.5% W/EPI SDV* 10 ML VIAL INJ ONE (07:57)
[2019-04-07] MEDS ORDERED: EPHEDrine (Pressors)* 50 MG/ML VIAL ONE (08:15)
[2019-04-07] MEDS ORDERED: Dexamethasone IV* 4 MG/ML 1 ML (4 MG) ONE (08:33)
[2019-04-07] MEDS ORDERED: Metoclopramide IV* 5 MG/ML 2 ML VIAL ONE (08:33)
[2019-04-07] MEDS ORDERED: Ketorolac INJ* 30 MG/ML 1 ML VIAL ONE (08:33)
[2019-04-07] MEDS ORDERED: Ondansetron INJ* 2 MG/ML VIAL ONE (08:33)
[2019-04-07] MEDS ORDERED: Labetalol IV* 5 MG/ML 20 ML VIAL ONE (09:13)
[2019-04-07] MEDS ORDERED: hydrALAZINE IV* 20 MG/ML VIAL ONE ×2 (09:52)
[2019-04-07] MEDS ORDERED: Naloxone* 0.4 MG/ML 1 ML VIAL IV PRN (10:03)
[2019-04-07] MEDS ORDERED: DiMENhydriNATE IV* 50 MG/ML VIAL IV PUSH PRN (10:03)
[2019-04-07] MEDS ORDERED: Acetaminophen IV 1GM/100ML * 100 ML ONE (10:30)
[2019-04-07] MEDS ORDERED: Sugammadex * 200 MG/2 ML VIAL IV PUSH ONE (10:32)
[2019-04-07] MEDS ORDERED: HYDROmorphone INJ1* 1 MG/ML SYRINGE ONE ×2 (10:33→11:30)
[2019-04-07] MEDS ORDERED: diPHENhydraMINE IV* 50 MG/ML 1 ml VIAL (BENADRYL) IV PRN (11:08)
[2019-04-07] MEDS ORDERED: Ondansetron INJ* 2 MG/ML VIAL IV PRN (11:08)
[2019-04-07] MEDS ORDERED: Magnesium Hydroxide LIQ* 30 ML UDC PO PRN (11:08)
[2019-04-07] MEDS ORDERED: diPHENhydraMINE PO* 25 MG PO PRN (11:08)
[2019-04-07] MEDS ORDERED: Ondansetron ODT TAB* 4 MG PO PRN (11:08)
[2019-04-07] MEDS: HYDROmorphone INJ1* 1 MG/ML SYRINGE IV PRN ×6 (11:33→21:17)
[2019-04-07] MEDS ORDERED: ceFAZolin 1 GM ADVAN(*) 1 GM in NS 0.9% 50 ML* 50 ML IVPB SCH (12:00)
[2019-04-07] MEDS ORDERED: Clindamycin 600 MG/D5W BAG(*) 600 MG/50 ML BAG IV SCH (12:00)
--- NOTE | 2019-04-07 12:46 | CONS ---
CONSULTATION REPORT: DATE OF CONSULT: 04/07/19 REQUESTING PROVIDER: Dr. Huff. REASON FOR CONSULT: General co-management. HISTORY OF PRESENT ILLNESS: This is a 63-year-old male with a past medical history that is significant for CABG x1, aortic valve replacement, AFib, hypertension, who was admitted on 04/07/19 status post a left total knee replacement after failing conservative outpatient management. Hospital Medicine was consulted to help manage hypertension and other comorbidities. The patient was seen in the PACU, awakened to voice only. Denied any chest pain , shortness of breath, abdominal pain, nausea, vomiting, though reported significant pain in the right knee before falling back asleep. PAST MEDICAL HISTORY: Hypertension, hyperlipidemia, obstructive sleep apnea, coronary artery disease, AFib, aortic stenosis. PAST SURGICAL HISTORY: Right knee arthroscopy x2, 2 shoulder surgeries, CABG x1 , aortic valve replacement in 2011 with ejection fraction of 50% to 55%. MEDICATIONS: 1. Ascorbic acid 500 mg p.o. daily. 2. ASA 81 mg p.o. daily. 3. Hydrocodone 5/325 one to two tabs q.4 to 6 hours as needed for pain. 4. Lisinopril 5 mg p.o. daily. 5. Lorazepam 0.5 mg q.8 hours as needed. 6. Metoprolol succinate 150 mg daily. 7. Multivitamin 1 tab daily. 8. Fish oil 1000 mg p.o. daily. 9. Omeprazole 40 mg p.o. daily. 10. Simvastatin 40 mg p.o. daily. ALLERGIES: To KEFLEX. FAMILY HISTORY: Significant for cardiac disease, diabetes, and cancer. SOCIAL HISTORY: Quit smoking in 2003, had been 1 pack a day for 30 years. Occasional alcohol use. Denies any recreational substance use. REVIEW OF SYSTEMS: Review of systems was limited due to sedation secondary to anesthesia. Again, negative for any chest pain or shortness of breath. PHYSICAL EXAM: Vital Signs: 97.2, 95 heart rate, 16 resps, 99% oxygen on 4 L via OxyMask, 114/65 blood pressure. General: This is a well-developed gentleman seen resting in bed, no acute distress noted, sedated. Eyes: PERRLA , though pupils pinpoint. EOMs intact. ENT: Mucous membranes moist. Oropharynx clear. Neck is supple. Cardiac: S1, S2 present. Heart rate regular. No murmurs, gallops, or rubs appreciated. Lungs: Clear throughout bilaterally on 4 L of oxygen via OxyMask. Abdomen: Soft, nontender, nondistended with positive bowel sounds x4. Musculoskeletal: Decreased movement to the left lower extremity. Cap refill within 3 seconds. Feet are warm. Pedal pulses +2 bilaterally. Skin: Dressing to left knee is clean, dry, and intact with Cryo unit in place. Neurologic: No focal deficits appreciated. Sensation intact to light touch, though diminished in the left lower extremity. DIAGNOSTIC STUDIES/LAB DATA: Left knee x-ray showed expected immediate postoperative changes related to total knee arthroplasty. No laboratory studies during this admission. ASSESSMENT: My impression is that this is a 63-year-old male with a past medical history significant for hypertension, atrial fibrillation and coronary artery disease, who was admitted on 04/07/19 status post a left total knee replacement. Hospitalists are following the patient for general co-management. PLAN: 1. Status post left total knee replacement. Pain and bowel management as per Ortho, PT and OT. Littlejohn to be removed in the a.m. Saline lock when tolerating p.o. 2. Hypertension. Hold lisinopril during the stay unless blood pressures become greater than 160. Continue metoprolol succinate. 3. Coronary artery disease with CABG. Continue metoprolol succinate. Hold lisinopril. Continue aspirin 81 mg. Last echo performed in 2011, which showed an ejection fraction of 50% to 55%. No current signs or symptoms of ACS at this time. 4. Hyperlipidemia. Continue simvastatin. 5. Obstructive sleep apnea. The patient is to use his own CPAP. 6. AFib. The patient is currently on metoprolol succinate, though was not on any anticoagulation previously for unknown reasons. 7. DVT prophylaxis: The patient is started on Coumadin with heparin to bridge. 8. Code status is full code. Condition is fair. 9. Disposition: Admit inpatient to short-stay surgical. TIME SPENT: Time spent on the patient is now 40 minutes with more than half that was spent [id number]. Thank you for allowing us to participate in the care of this patient. We will follow during this admission. [id number]/[facility] #: [id number] RADHA
[2019-04-07] MEDS ORDERED: oxyCODONE TAB* 5 MG TAB ONE (13:01)
[2019-04-07] MEDS: oxyCODONE TAB* 5 MG TAB PO PRN ×4 (13:01→21:13)
--- NOTE | 2019-04-07 13:03 | OP ---
DATE OF OPERATION: 04/07/19 - ROOM #343 DATE OF : 51 SURGEON: Augustine Huff MD APPAREL DESIGNER: Mi Bone RPA ANESTHESIA: General. PRE-OP DIAGNOSIS: Osteoarthritis of the left knee. POST-OP DIAGNOSIS: Osteoarthritis of the left knee. OPERATIVE PROCEDURE: Left total knee arthroplasty with Navio guidance. ESTIMATED BLOOD LOSS: 50 cc. COMPLICATIONS: None. HARDWARE: [employer] Legion #6 femur, #5 Peyton II tibia, 9-mm polyethylene, 35-mm polyethylene button. SUMMARY: Mr. Munguia is a 63-year-old male who had previously undergone a right total knee arthroplasty. He eventually did well with this and his left knee has now been giving him more pain and troubles. By x-ray it can be seen how he is [id number] in the medial compartment and has spurring and changes in all 3 compartments. I discussed with him that a total knee arthroplasty should work well to decrease his pain and improve his function. Risks of surgery such as infection, scar formation, stiffness, DVT, pulmonary embolism, hardware failure, and continued pain were some of the risks discussed. He had been declared medically optimized and wished to proceed. DESCRIPTION OF PROCEDURE: The patient had a saphenous nerve block placed in the holding area and was brought back to the OR. General endotracheal anesthesia was established. Littlejohn catheter was placed. Tourniquet was placed over the proximal left thigh and was used during the case. Total tourniquet time would be 90 minutes. Left knee was prepped and then draped. Esmarch was used to exsanguinate the leg and the tourniquet was raised. Midline incision was made beginning just medial to the tibial tubercle and carried about 4 fingerbreadths above the superior pole of the patella. Incision was carried down through the skin and subcutaneous tissues. Small bleeders encountered were ligated using electrocautery. Cautery was also used to take down the prepatellar bursa. Extensor mechanism was nicely exposed and a sharp parapatellar arthrotomy was made. Gush of clear yellowish joint fluid was encountered. Soft tissues were sharply elevated for the medial side of the tibia and the fat pad was sharply excised. Patella measured approximately 26 mm in thickness and a nice 10 mm cut was taken. Patella was then easily subluxated laterally and nice exposure of the knee was obtained. Femoral pins were placed using the guide as were tibial pins. Femoral and tibial outriggers were also placed. Navio was then set up. Landmarks were scanned so that the computer could properly scan the knee. Knee was taken through range of motion and femur and then tibia were both scanned. I templated him for a 6 on both the femur and the tibia and the computer selected a 7, but this was a bit oversized. This was downsized to a 6 and this was adjusted until the alignment looked good with his flexion and extension gaps. End of the femur was then burred down using the Navio and the peg holes were also drilled. Femoral guide was then impacted into place and alignment was checked with the top pad and I leaned into it to make the alignment nearly perfect and then this was pinned into place. Anterior cut was taken first and he did not notch. Anterior and posterior femoral cut and chamfer cuts were then taken. Attention was turned to the tibia. Peg holes were drilled using Navio guidance and the tibial guide was placed. Proximal tibial cut was taken, appeared a nice cut was obtained. Spacer block was placed and its alignment appeared quite good and his flexion and extension blocks were also quite good as well. Tibia was sized and the 5 sat very nicely. Proximal tibia was drilled and then punched. Trial femur was placed and notch cut was finished first using the reamer and then the box storage worker. He was trialed with a 9 and locked out nicely into full extension and easily flexed past 125 degrees. Even with the pains in, patella tracking was alright. Knee was taken through stress range of motion and numbers were saved. Pins were removed and patella was sized at a 35. Holes were drilled and trial was snapped into place. He still would have a tendency to slip over every now and then and he did have a large band in the lateral gutter. Bovie was used to resect the band and he was pie-crusted a little bit. This improved patella tracking. Trial instrumentation was removed. The knee was copiously pulse lavaged. Cement was being prepared. Tibia followed by femur and patella were all cemented into place. Excess cement was removed and the cement was allowed to harden. Tibial pin site holes were closed using 4-0 nylon sutures during this time. Once cement had hardened, the knee was taken again through range of motion and patella tracking was good and stability and motion were excellent. Trial polyethylene was removed and knee was copiously pulse lavaged. Knee was searched for a cement and a few small pieces were found. Polyethylene was called for and snapped into place. Knee was again taken through range of motion and he had spectacular motion and stability. Knee was again pulse lavaged and tourniquet was let down. No significant bleeding was encountered. Arthrotomy was repaired using interrupted #1 Vicryl sutures and the knee was again pulse lavaged. Subcutaneous tissues were reapproximated using 2-0 Vicryl. Skin was closed using cici. Sterile dressing and a Cryo/ Cuff were applied in the OR. The patient was then extubated in the OR and was stable on transfer to the recovery room. [id number]/[facility] #: [id number] RADHA
[2019-04-07] MEDS: Acetaminophen TAB* 325 MG PO SCH ×2 (14:32→21:13)
[2019-04-07] MEDS: D5W 1/2 NS 1000 ML BAG* 1,000 ML IV SCH ×2 (14:32→23:44)
[2019-04-07] MEDS: traMADol TAB* 50 MG PO PRN ×2 (16:26→22:34)
[2019-04-07] MEDS: ceFAZolin 1 GM ADVAN(*) 1 GM in NS 0.9% 50 ML* 50 ML IVPB SCH ×2 (16:26→23:43)
[2019-04-07] MEDS ORDERED: Warfarin TAB(*) 10 MG PO ONE (17:00)
[2019-04-07] MEDS: Magnesium Hydroxide LIQ* 30 ML UDC PO SCH (20:07)
[2019-04-07] MEDS: Docusate CAP* 100 MG PO SCH (20:07)
[2019-04-07] MEDS: Atorvastatin* 20 MG TAB PO SCH (20:07)
[2019-04-07] MEDS: Ketorolac INJ* 30 MG/ML 1 ML VIAL IV PRN (20:08)
[2019-04-07] MEDS ORDERED: [UNRECOGNIZED DRUG - OTHER] PO SCH (21:00)
[2019-04-08] MEDS: oxyCODONE TAB* 5 MG TAB PO PRN ×5 (02:33→22:25)
[2019-04-08] MEDS: Ketorolac INJ* 30 MG/ML 1 ML VIAL IV PRN ×2 (02:34→16:29)
[2019-04-08] MEDS: HYDROmorphone INJ1* 1 MG/ML SYRINGE IV PRN ×2 (03:10→07:51)
[2019-04-08] MEDS: traMADol TAB* 50 MG PO PRN (05:43)
[2019-04-08] MEDS: Acetaminophen TAB* 325 MG PO SCH ×3 (05:43→22:26)
[2019-04-08] MEDS: ceFAZolin 1 GM ADVAN(*) 1 GM in NS 0.9% 50 ML* 50 ML IVPB SCH (07:50)
[2019-04-08] MEDS: Cyclobenzaprine TAB* 10 MG PO PRN (07:51)
[2019-04-08] MEDS: Magnesium Hydroxide LIQ* 30 ML UDC PO SCH ×2 (08:26→21:03)
[2019-04-08] MEDS: Docusate CAP* 100 MG PO SCH ×2 (08:27→22:26)
[2019-04-08] MEDS: Heparin VIAL(*) 5000 UNITS/ML VIAL (FIVE THOUSAND) SUBCUT SCH ×3 (08:27→22:27)
[2019-04-08] MEDS: Pantoprazole TAB * 40 MG TAB PO SCH (08:27)
[2019-04-08] MEDS: Metoprolol Succinate XL TAB* 100 MG PO SCH (08:27)
[2019-04-08] MEDS: Aspirin EC TAB* 81 MG TAB.EC PO SCH (08:27)
[2019-04-08] MEDS: Multivitamins/Minerals TAB PO SCH (08:27)
[2019-04-08] MEDS: Ascorbic Acid TAB* 500 MG PO SCH (08:27)
[2019-04-08] MEDS ORDERED: Metoprolol Tartrate TAB* 25 MG PO SCH (09:00)
[2019-04-08] MEDS ORDERED: Vitamin THERAPEUTIC TAB PO SCH (09:00)
[2019-04-08 09:09] LABS: Hematocrit 31 % (42-52); Hemoglobin 10.3 g/dL (14.0-18.0); Mean Platelet Volume 7.7 fL (7.4-10.4); Platelet Count 146 10^3/uL (150-450)
[2019-04-08 09:19] LABS: INR 1.22 (0.82-1.09)
[2019-04-08] MEDS: TADALAFIL 5 MG PO SCH (09:24)
[2019-04-08 09:26] LABS: Calcium 8.1 mg/dL (8.6-10.3); EGFR African American 68.2 (>60); EGFR Non-African American 56.4 (>60); Potassium 4.1 mmol/L (3.5-5.0)
[2019-04-08] MEDS: D5W 1/2 NS 1000 ML BAG* 1,000 ML IV SCH (10:15)
--- NOTE | 2019-04-08 11:47 | PN ---
Progress Note - Progress Note Date of Service: 04/08/19 SOAP: Subjective: OOB to chair, resting comfortably with pain well controlled Objective: Vital Signs Temp Pulse Resp BP Pulse Ox 99 F 73 16 111/61 95 04/08/19 11:36 04/08/19 11:36 04/08/19 11:36 04/08/19 11:36 04/08/19 11:36 Laboratory Last Values Hgb 10.3 g/dL (14.0-18.0) L 04/08/19 09:01 Hct 31 % (42-52) L 04/08/19 09:01 Plt Count 146 10^3/uL (150-450) L 04/08/19 09:01 MPV 7.7 fL (7.4-10.4) 04/08/19 09:01 INR (Anticoag Therapy) 1.22 (0.82-1.09) H 04/08/19 09:01 Sodium 132 mmol/L (135-145) L 04/08/19 09:01 Potassium 4.1 mmol/L (3.5-5.0) 04/08/19 09:01 Chloride 100 mmol/L (101-111) L 04/08/19 09:01 Carbon Dioxide 24 mmol/L (22-32) 04/08/19 09:01 Anion Gap 8 mmol/L (2-11) 04/08/19 09:01 BUN 23 mg/dL (6-24) 04/08/19 09:01 Creatinine 1.28 mg/dL (0.67-1.17) H 04/08/19 09:01 Est GFR ( Amer) 68.2 (>60) 04/08/19 09:01 Est GFR (Non-Af Amer) 56.4 (>60) 04/08/19 09:01 BUN/Creatinine Ratio 18.0 (8-20) 04/08/19 09:01 Glucose 147 mg/dL (70-100) H 04/08/19 09:01 Calcium 8.1 mg/dL (8.6-10.3) L 04/08/19 09:01 incision: c/d/i PE: able to DF/PF, 2+ DPpulse and intact sensation Assessment: s/p TKA; POD #1 Plan: 1) PT/OT-WBAT 2) Ancef for 24 hours 3) Coumadin/Lovenox for DVT prophylaxis 4) home today if PT goals met
[2019-04-08] MEDS ORDERED: Magnesium Sulfate 2 GM IV* 2 GM/50 ML BAG IVPB ONE (12:53)
[2019-04-08] MEDS ORDERED: LORazepam TAB(*) 1 MG PO PRN (15:30)
[2019-04-08] MEDS ORDERED: Warfarin TAB(*) 4 MG PO ONE (17:00)
--- NOTE | 2019-04-08 18:17 | PN ---
Subjective Date of Service: 04/08/19 Interval History: Patient initially seen ambulating in hallway with PT, gait steady. Evaluated patient once he was sitting in his chair. Stated that he was attempting to stay away from dilaudid and to stick with oral pain medication to control his discomfort with the goal of going home tomorrow. Stated he did not sleep much last night. Has occasionally felt shaky. Had a 10 beat run of v-tach earlier without symptoms, nothing since IV magnesium infusion. Denies chest pain, palpitations, fevers, chills, abdominal pain, nausea, vomiting, problems with bowel or bladder. Spoke with patient about alcohol withdrawal symptoms and alcohol consumption strategies. Educated him about importance of not drinking while on blood thinners. Family History: Unchanged from Admission Social History: Unchanged from Admission Past Medical History: Unchanged from Admission Objective Active Medications: Acetaminophen (Tylenol Tab*) 975 mg PO Q8HR [facility] Last Admin: 04/08/19 14:20 Dose: 975 mg Ascorbic Acid (Vitamin C Tab*) 500 mg PO QAM [facility] Last Admin: 04/08/19 08:27 Dose: 500 mg Aspirin (Aspirin Ec Tab*) 81 mg PO QAM [facility] Last Admin: 04/08/19 08:27 Dose: 81 mg Atorvastatin Calcium (Lipitor*) 20 mg PO BEDTIME [facility] Last Admin: 04/07/19 20:07 Dose: 20 mg Bisacodyl (Dulcolax Supp*) 10 mg [place] DAILY PRN PRN Reason: CONSTIPATION Cyclobenzaprine HCl (Flexeril Tab*) 10 mg PO Q6H PRN PRN Reason: SPASMS Last Admin: 04/08/19 07:51 Dose: 10 mg Diphenhydramine HCl (Benadryl Iv*) 25 mg IV Q6H PRN PRN Reason: PRURITIS Diphenhydramine HCl (Benadryl Po*) 25 mg PO Q6H PRN PRN Reason: PRURITIS Docusate Sodium (Colace Cap*) 100 mg PO BID [facility] Last Admin: 04/08/19 08:27 Dose: 100 mg Heparin Sodium (Porcine) (Heparin Vial(*)) 5,000 units SUBCUT Q8HR [facility] Last Admin: 04/08/19 14:21 Dose: 5,000 units Hydromorphone HCl (Dilaudid Inj1s*) 1 mg IV Q4H PRN PRN Reason: breakthru pain Last Admin: 04/08/19 07:51 Dose: 1 mg Ketorolac Tromethamine (Toradol Inj*) 30 mg IV Q6H PRN PRN Reason: PAIN - MILD Last Admin: 04/08/19 16:29 Dose: 30 mg Lactulose (Lactulose*) 30 ml PO BID PRN PRN Reason: CONSTIPATION Lorazepam (Ativan Tab(*)) 1 mg PO Q6H PRN PRN Reason: AGITATION Magnesium Hydroxide (Milk Of Magnesia Liq*) 30 ml PO BID [facility] Last Admin: 04/08/19 08:26 Dose: 30 ml Magnesium Hydroxide (Milk Of Magnesia Liq*) 30 ml PO Q6H PRN PRN Reason: CONSTIPATION Metoprolol Succinate (Toprol Xl Tab*) 150 mg PO DAILY [facility] Last Admin: 04/08/19 08:27 Dose: 150 mg Multivitamins/Minerals (Theragran/Minerals Tab*) [facility] Admin: 04/08/19 08:27 Dose: 1 tab [Tadalafil] 5 Mg [facility] [place] Last Admin: 04/08/19 09:24 Dose: Not Given Ondansetron HCl (Zofran Inj*) 4 mg IV Q6H PRN PRN Reason: NAUSEA Ondansetron HCl (Zofran Odt Tab*) 4 mg PO Q6H PRN PRN Reason: NAUSEA Oxycodone HCl (Roxycodone Tab*) 10 mg PO Q4H PRN PRN Reason: Pain - Breakthrough Last Admin: 04/08/19 16:29 Dose: 10 mg Pantoprazole Sodium (Protonix Tab*) [facility] [place] Last Admin: 04/08/19 08:27 Dose: 40 mg Tramadol HCl (Ultram*) 50 mg PO Q6H PRN PRN Reason: PAIN - MODERATE Last Admin: 04/08/19 05:43 Dose: 50 mg Vital Signs - 8 hr 04/08/19 04/08/19 04/08/19 11:36 11:54 14:11 Temperature 99 F Pulse Rate 73 Respiratory 16 20 18 Rate Blood Pressure 111/61 (mmHg) O2 Sat by Pulse 95 Oximetry 04/08/19 04/08/19 14:13 16:29 Temperature Pulse Rate Respiratory 18 20 Rate Blood Pressure (mmHg) O2 Sat by Pulse Oximetry Oxygen Devices in Use Now: None Appearance: This is a well developed patient seen sitting up in chair. Flushed, no acute distress noted. Eyes: No Scleral Icterus, PERRLA Ears/Nose/Mouth/Throat: NL Teeth, Lips, Gums, Clear Oropharnyx, Mucous Membranes Moist Neck: NL Appearance and Movements; NL JVP, Trachea Midline Respiratory: Symmetrical Chest Expansion and Respiratory Effort, Clear to Auscultation Cardiovascular: RRR, No Edema, - - No gallops or rubs. Grade 1 stenosis heard best at second intercostal to the right of the sternal border. Abdominal: NL Sounds; No Tenderness; No Distention Lymphatic: No Cervical Adenopathy Extremities: - - Trace to the left lower extremity. Skin: No Rash or Ulcers, No Nodules or Sclerosis, - - Dressing to left knee is clean, dry and intact. Neurological: Alert and Oriented x 3, NL Gait Lines/Tubes/Other Access: Clean, Dry and Intact Peripheral IV Result Diagrams: 04/08/19 09:01 04/08/19 09:01 Assess/Plan/Problems-Billing Assessment: This is a 63 year old male with a past medical history of hypertension, afib, CABG and ETOH abuse who was admitted 04/07/19 s/p left total knee replacement after failing conservative outpatient therapy. - Patient Problems (1) Status post total left knee replacement Current Visit: Yes Status: Acute Code(s): Z96.652 - PRESENCE OF LEFT ARTIFICIAL KNEE JOINT SNOMED Code(s): 7281513032020 Comment: -PT/OT. Pain and bowel management as per ortho. Plan is to go home tomorrow. Attempting to control pain with oral pain medication. (2) ETOH abuse Current Visit: Yes Status: Acute Code(s): F10.10 - ALCOHOL ABUSE, UNCOMPLICATED SNOMED Code(s): 53291174 Comment: -Patient stated that he has recent cut back on the amount of alcohol he drinks, though would not state exact amount. He feels that it is "probably more than he should drink". Some signs of withdrawal including insomnia. Do not feel the need to place patient on WAM protocol though ordered prn lorazepam as needed. Discussed that he should not drink while on blood thinners. Provided reduction strategies to reduce the amount of alcohol consumed in one sitting. (3) V-tach Current Visit: Yes Status: Acute Code(s): I47.2 - VENTRICULAR TACHYCARDIA SNOMED Code(s): 03560472 Comment: -On telemetry monitoring which picked up an symptomatic 10 beat run of v-tach. Given IV magnesium with no further issues. Will check mag in AM. (4) Hypertension Current Visit: Yes Status: Acute Code(s): I10 - ESSENTIAL (PRIMARY) HYPERTENSION SNOMED Code(s): 29568248 Comment: -Hold lisinopril during admission, may restart upon discharge. Continue metoprolol and tadalafil. SBP's have been less than 140. (5) Atrial fibrillation Current Visit: Yes Status: Acute Code(s): I48.91 - UNSPECIFIED ATRIAL FIBRILLATION SNOMED Code(s): 17258881 Comment: -Patient has been in sinus rhythm for "a while". Continue metoprolol. Was not on any anticoagulants preoperatively. (6) Hyperlipidemia Current Visit: Yes Status: Acute Code(s): E78.5 - HYPERLIPIDEMIA, UNSPECIFIED SNOMED Code(s): 65127501 Comment: -Continue atorvastatin. (7) ANTONELLA (obstructive sleep apnea) Current Visit: Yes Status: Acute Code(s): G47.33 - OBSTRUCTIVE SLEEP APNEA ( ADULT) (PEDIATRIC) SNOMED Code(s): 76454803 Comment: -May use own cpap (8) Coronary artery disease Current Visit: Yes Status: Acute Code(s): I25.10 - ATHSCL HEART DISEASE OF [place] CORONARY ARTERY W/O ANG PCTRS SNOMED Code(s): 95374628 Comment: -No signs or symptoms of ACS. Continue metoprolol and ASA. Last echo performed in 2011 with EF of 50-55%. (9) GERD (gastroesophageal reflux disease) Current Visit: Yes Status: Acute Code(s): K21.9 - GASTRO-ESOPHAGEAL REFLUX DISEASE WITHOUT ESOPHAGITIS SNOMED Code(s): 206099402 Comment: -No symptoms of indigestion. Continue pantoprazole. (10) DVT prophylaxis Current Visit: Yes Status: Acute Code(s): Z29.9 - ENCOUNTER FOR PROPHYLACTIC MEASURES, UNSPECIFIED SNOMED Code(s): 345062435 Comment: -Coumadin with heparin bridge. (11) Full code status Current Visit: Yes Status: Acute Code(s): Z78.9 - OTHER SPECIFIED HEALTH STATUS SNOMED Code(s): 227859496 Status and Disposition: Condition: Fair Disposition: Admit inpatient to [facility]. Attending: Abdulaziz Sands
[2019-04-08] MEDS: Atorvastatin* 20 MG TAB PO SCH (22:25)
[2019-04-09] MEDS: Cyclobenzaprine TAB* 10 MG PO PRN (00:06)
[2019-04-09] MEDS: Ketorolac INJ* 30 MG/ML 1 ML VIAL IV PRN (00:07)
[2019-04-09] MEDS: oxyCODONE TAB* 5 MG TAB PO PRN ×3 (02:34→13:06)
[2019-04-09] MEDS: Acetaminophen TAB* 325 MG PO SCH (05:39)
[2019-04-09] MEDS: Heparin VIAL(*) 5000 UNITS/ML VIAL (FIVE THOUSAND) SUBCUT SCH (05:39)
[2019-04-09 08:22] LABS: Hematocrit 27 % (42-52); Hemoglobin 9.3 g/dL (14.0-18.0); Mean Platelet Volume 8.4 fL (7.4-10.4); Platelet Count 119 10^3/uL (150-450)
[2019-04-09 08:23] LABS: INR 1.32 (0.82-1.09)
[2019-04-09] MEDS: Docusate CAP* 100 MG PO SCH (08:31)
[2019-04-09] MEDS: Multivitamins/Minerals TAB PO SCH (08:31)
[2019-04-09] MEDS: Aspirin EC TAB* 81 MG TAB.EC PO SCH (08:31)
[2019-04-09] MEDS: Pantoprazole TAB * 40 MG TAB PO SCH (08:31)
[2019-04-09] MEDS: Ascorbic Acid TAB* 500 MG PO SCH (08:31)
[2019-04-09] MEDS: Metoprolol Succinate XL TAB* 100 MG PO SCH (08:31)
[2019-04-09 08:33] LABS: Calcium 7.9 mg/dL (8.6-10.3); EGFR African American 82.2 (>60); EGFR Non-African American 67.9 (>60); Magnesium 2.6 mg/dL (1.9-2.7); Potassium 3.9 mmol/L (3.5-5.0)
[2019-04-09] MEDS: TADALAFIL 5 MG PO SCH (08:33)
[2019-04-09] MEDS: Magnesium Hydroxide LIQ* 30 ML UDC PO SCH (08:34)
--- NOTE | 2019-04-09 10:42 | DS ---
Orthopedic Discharge Summary - Discharge Summary Date of Admission:04/07/19 Date of Discharge: 04/09/19 Date of Surgery: 04/07/19 Attending Orthopedic Provider: Dr Huff Pre-operative Diagnosis: Left knee osteoarthritis Operative Procedure: left total knee replacement Disposition of Patient: home with visiting nurse Condition of Patient: stable History: ERICK OLGUIN is a 63 year old M with years of increasingly severe left knee pain. Patient has failed conservative management and has elected to undergo a left total knee replacement Hospital Course: ERICK was admitted to [facility] on 04/07/19. Patient underwent a left total knee replacement without complication followed by a brief recovery in PACU and transfer to the Short Stay Surgical Unit in stable condition. Our hospitalist service, physical therapy and occupational therapy also participated in this patients care. Post-op day 1: patient was alert and in no acute distress. Dressing was clean, dry and intact. Operative extremity dorsiflexion and plantarflexion intact, sensation intact to light touch distally, DP2+. Post-op day two: dressing was changed, incision was clean , dry and intact. POD 3 no CP, SOB, dizziness or nausea. Had 10 beats of vtach overnight, none since magnesium given. Dressing changed. incisions CDI no erythema. NVI distally. Discussed with medicine, safe to DC home. Patient was deemed to be medically and orthopedically stable for discharge. Physical therapy goals were met. Home Medications Medication Instructions Recorded Confirmed Type Metoprolol Tartrate TAB* 150 mg PO QAM 05/14/12 03/25/19 History [Lopressor TAB*] Omeprazole CAP* 40 mg PO QAM 05/14/12 03/25/19 History Ascorbic Acid TAB* [Vitamin C 500 mg PO QAM 04/19/16 03/25/19 History TAB*] Lisinopril [Zestril 5 MG-] 5 mg PO BEDTIME 04/19/16 03/25/19 History Aspirin [Aspir-Low] 81 mg PO QAM 03/25/19 03/25/19 History Multivitamins/Minerals TAB* 1 tab PO QAM 03/25/19 03/25/19 History [Theragran/minerals TAB*] [place]-3 Fatty Acids/Fish Oil 1,000 mg PO QAM 03/25/19 03/25/19 History [[place] 3 1,000 mg Softgel] Simvastatin [Zocor] 40 mg PO BEDTIME 03/25/19 03/25/19 History Tadalafil 5 mg PO QAM 03/25/19 03/25/19 History Vit C/E/Zn/Coppr/Lutein/Zeaxan 1 each PO BID 03/25/19 03/25/19 History [Preservision Areds 2 Softgel] Acetaminophen TAB* [Tylenol TAB*] 975 mg PO Q8HR tab 04/09/19 Rx Docusate CAP* [Colace Cap*] 100 mg PO BID PRN #90 cap 04/09/19 Rx Enoxaparin(*) [Lovenox(*)] 40 mg SUBCUT Q24HR #5 syringe 04/09/19 Rx Oxycodone HCl/Acetaminophen 2 tab PO Q4HR PRN #70 tablet MDD 10 04/09/19 Rx [Percocet 5-325 mg Tablet] Warfarin TAB(*) [Coumadin TAB(*)] 2 mg PO DAILY #90 tab 04/09/19 Rx Discharge Instructions following Orthopedic Surgery: Activity: * Weight Bearing as tolerated * Continue physical therapy and occupational therapy exercises as shown * Home PT Wound care: * OK to shower on post-op day 3, no bathing, swimming, or submerging wound. * Use gentle soap, pat dry. Cover with gauze, ARLIN wrap or tape. * Visiting home nurse to do wound checks. * Home Nurse to remove cici and sutures in 2 weeks Call Orthopedic office for: * Increased drainage * Redness * Increased pain * Fever Go to ER with shortness of breath or chest pain. Diet: * Regular diet * Increase fluids and fiber to prevent constipation. * Continue to use stool softeners, call office if no bowel motion within 48 hours. Medications See Home Medication List in your packet for medications that you should take after discharge. DVT Prophylaxis: Increases bleeding tendency -Coumadin Dosing: * Please note that you have been given 2 mg tablets. * Visiting home nurse to draw blood work for INR on Sunday and . * You will be provided with dose instructions on Mondays and . * If you do not receive dosing instruction on dosing, please call our office right away. Please ashley dosing instructions on your calendar as they are provided to you. * Dosin mg on 04/09. Recheck INR blood draw 04/10 for further dosing instructions. Call orthopedic office if you do not receive dosing instructions. ALSO -Lovenox Dosin mg subq injection once a day until INR is between 2-3. Ortho office will instruct when to stop Pain Control: Percocet Dosin/325 mg 1-2 tabs by mouth every 4-6 hours as needed for pain. Maximum of 10 tabs per day. Hold for sedation, wean off as soon as pain allows Please note that Percocet contains Tylenol (acetaminophen). Maximum daily dose of Tylenol is 4000 mg from all sources. Antibiotics are required prior to any dental work. FOLLOW UP: Follow up with [Refugio] Within 4 weeks, call for appointment Please call our office with any questions or concerns ([phone]) [facility]
[2019-04-09] MEDS ORDERED: Bisacodyl SUPP* 10 MG SUPP PR PRN (11:09)
[2019-04-09 11:28] VITALS: BP 114/61
[2019-04-09] MEDS: traMADol TAB* 50 MG PO PRN (12:33)
== END 2019-04-09 15:10 | disposition home health service (06) | DRG 302 ==
LOC: AA 05:35 → SSU 13:44
PROVIDERS: ADMIT Orthopaedic Surgery; ATTEND Orthopaedic Surgery
PROC: 8E0YXBZ Computer Assisted Procedure of Lower Extremity (ICD-10-PCS; 2019-04-07)
PROC: 0SRD0J9 Replacement of Left Knee Joint with Synthetic Substitute, Cemented, Open Approach (ICD-10-PCS; principal; 2019-04-07 07:30)
DX: M17.12 Unilateral primary osteoarthritis, left knee (principal); I25.810 Atherosclerosis of coronary artery bypass graft(s) without angina pectoris; T82.857A Stenosis of other cardiac prosthetic devices, implants and grafts, initial encounter; I47.2 Ventricular tachycardia; I77.819 Aortic ectasia, unspecified site; I25.10 Atherosclerotic heart disease of native coronary artery without angina pectoris; E66.01 Morbid (severe) obesity due to excess calories; G47.33 Obstructive sleep apnea (adult) (pediatric); E78.5 Hyperlipidemia, unspecified; I10 Essential (primary) hypertension; Y69 Unspecified misadventure during surgical and medical care; I48.91 Unspecified atrial fibrillation; F10.10 Alcohol abuse, uncomplicated; Y90.9 Presence of alcohol in blood, level not specified; Z95.2 Presence of prosthetic heart valve; Z68.37 Body mass index [BMI] 37.0-37.9, adult; Z95.1 Presence of aortocoronary bypass graft; Z87.891 Personal history of nicotine dependence; Y92.9 Unspecified place or not applicable; Z88.1 Allergy status to other antibiotic agents; Z79.82 Long term (current) use of aspirin; Z79.899 Other long term (current) drug therapy; Z79.01 Long term (current) use of anticoagulants
CPT/HCPCS: 36415; 80048; 83735; 85014; 85018; 85049; 85610; 88305; 88311; A9270-GY; C1776; G8978-GP-CK; G8979-GP-CI; J0330; J0360; J0690; J1100; J1170; J1644; J1885; J2250; J2405; J2704; J2765; J2795; J3010; J3475

== ENCOUNTER 2023-10-18 14:02 | Inpatient (IN) ==
[2023-10-18 14:40] LABS: ABS Lymphocytes 0.7 10^3/uL (1.0-4.8); ABS Monocytes 0.8 10^3/uL (0.0-1.1); ABS Neutrophils 8.1 10^3/uL (1.5-7.6); Eosinophil % 0.4 %; Hematocrit 37.5 % (38-53); Hemoglobin 12.8 g/dL (13.2-16.3); Lymphocyte % 7.5 %; Mean Corpuscular Hemoglobin 34.7 pg (27-33); Mean Corpuscular Hgb Conc 34.2 g/dL (31-36); Mean Corpuscular Volume 101.3 fL (80-97); Mean Platelet Volume 8.8 fL (7.5-11.2); Platelet Count 129 10^3/uL (150-450); Red Cell Distribution Width 14.1 % (12-17); White Blood Count 9.8 10^3/uL (3.6-10.2)
[2023-10-18 15:39] LABS: Albumin 4.4 g/dL (3.2-5.2); Albumin/Globulin Ratio 1.9 (1-3); Calcium 9.3 mg/dL (8.6-10.3); Creatinine, Serum 1.16 mg/dL (0.67-1.17); Globulin 2.3 g/dL (2-4); Magnesium 2.1 mg/dL (1.9-2.7); Total Bilirubin 0.6 mg/dL (0.2-1.0); Total Protein 6.7 g/dL (6.4-8.9); eGFR CKD-EPI 67.8 (>60)
[2023-10-18 15:40] LABS: TSH Ultra Thyroid Stim Horm 0.62 mcIU/mL (0.34-5.60)
[2023-10-18 15:59] LABS: Potassium 4.1 mmol/L (3.5-5.0)
[2023-10-18 16:00] LABS: High Sensitivity Troponin 1 Hr 12 pg/mL (<20)
[2023-10-18] MEDS: Iohexol 350 (CONTRAST) 500 ML MDV IV ONE (16:59)
[2023-10-18] MEDS: D5NS 0.9% 1000 ml BAG 1,000 ML IV SCH (18:49)
[2023-10-18] MEDS: Dextrose 50% Syringe 50 ml 25 GM/50 ML SYRINGE IV PUSH ONE (19:55)
[2023-10-18] MEDS ORDERED: Polyethylene Glycol 3350 17 GM PACKET PO PRN (20:04)
[2023-10-18] MEDS ORDERED: Senna TAB 8.6 mg TAB PO PRN (20:04)
[2023-10-18] MEDS ORDERED: Sulfur Hexaflouride MICROSPHR 25 MG VIAL IV ONE (20:32)
[2023-10-18] MEDS: D10W 1000 ml BAG 1,000 ML IV SCH (21:14)
[2023-10-18] MEDS: Enoxaparin 40 MG/0.4 ML SYR SUBCUT SCH (21:15)
[2023-10-18] MEDS: Remdesivir 100 mg Vial 200 MG in NS 0.9% 250 ml 210 ML IV ONE (22:54)
[2023-10-19] MEDS: D10W 1000 ml BAG 1,000 ML IV SCH (01:06)
[2023-10-19] MEDS: Dextrose 50% Syringe 50 ml 25 GM/50 ML SYRINGE IV PUSH ONE (02:20)
[2023-10-19 05:57] LABS: ABS Eosinophils 0.2 10^3/uL (0.0-0.5); ABS Lymphocytes 1.4 10^3/uL (1.0-4.8); ABS Neutrophils 3.5 10^3/uL (1.5-7.6); Eosinophil % 2.9 %; Hematocrit 33.9 % (38-53); Hemoglobin 11.6 g/dL (13.2-16.3); Lymphocyte % 22.7 %; Mean Corpuscular Hemoglobin 34.8 pg (27-33); Mean Corpuscular Hgb Conc 34.4 g/dL (31-36); Mean Corpuscular Volume 101.3 fL (80-97); Mean Platelet Volume 8.2 fL (7.5-11.2); Platelet Count 123 10^3/uL (150-450); Red Blood Count 3.34 10^6/uL (4.06-5.63); Red Cell Distribution Width 14.5 % (12-17); White Blood Count 6.1 10^3/uL (3.6-10.2)
[2023-10-19] MEDS ORDERED: Ondansetron 4 mg VIAL 2 MG/ML 2 ml VIAL IV PRN (06:13)
[2023-10-19 06:39] LABS: ALT 33 U/L (7-52); AST 37 U/L (13-39); Albumin 3.6 g/dL (3.2-5.2); Albumin/Globulin Ratio 1.8 (1-3); Alkaline Phosphatase 50 U/L (35-149); Anion Gap 9 mmol/L (2-16); Blood Urea Nitrogen 14 mg/dL (6-24); CO2 Carbon Dioxide 26 mmol/L (22-32); Calcium 8.9 mg/dL (8.6-10.3); Chloride 103 mmol/L (101-111); Creatinine, Serum 1.19 mg/dL (0.67-1.17); Glucose 49 mg/dL (70-100); Magnesium 1.9 mg/dL (1.9-2.7); Sodium 138 mmol/L (135-145); Total Bilirubin 0.4 mg/dL (0.2-1.0); Total Protein 5.6 g/dL (6.4-8.9); eGFR CKD-EPI 65.7 (>60)
[2023-10-19] MEDS: Dextrose 50% Syringe 50 ml 25 GM/50 ML SYRINGE IV PUSH PRN (07:37)
[2023-10-19 07:43] LABS: Insulin 34.9 mcIU/mL (2.0-16.0)
[2023-10-19] MEDS: Aspirin EC 81 mg TAB.EC (enteric coated) PO SCH (08:31)
[2023-10-19] MEDS ORDERED: Sulfur Hexaflouride MICROSPHR 25 MG VIAL ONE (08:43)
[2023-10-19] MEDS: HYDROcodone/ACETAMIN 5/325 mg TAB PO PRN (08:49)
[2023-10-19] MEDS ORDERED: Lisinopril/HCTZ 20/12.5 TB(NF) PO SCH (09:00)
[2023-10-19 10:30] LABS: Alcohol, S < 13 mg/dL (<13)
[2023-10-19 13:24] LABS: Urine Appearance No Cx Clear (Clear); Urine Bilirubin No Culture Negative (Negative); Urine Blood No Culture Negative (Negative); Urine Color No Culture Colorless; Urine Glucose No Culture 2+ (>=150 mg/dL) (Negative); Urine Ketones No Culture Negative (Negative); Urine Leukocytes No Culture Negative Leu/uL (Negative); Urine Nitrite No Culture Negative (Negative); Urine Protein No Culture Negative (Negative); Urine Specific Gravity No Cx 1.006 (1.002-1.030); Urine Urobilinogen No Cx Negative (Negative); Urine pH No Culture 6.5 (5.0-8.0)
[2023-10-19 13:26] LABS: Urine Bacteria No Culture Absent /HPF (Absent); Urine Red Blood Cell No Cult Trace(0-2/hpf) /HPF (0-Trace); Urine White Blood Cell No Cult Absent /HPF (0-Trace)
[2023-10-19] MEDS ORDERED: Remdesivir 100 mg Vial 100 MG in NS 0.9% 250 ml 230 ML IV SCH (21:00)
[2023-10-20 04:44] LABS: Hematocrit 36.8 % (38-53); Hemoglobin 12.3 g/dL (13.2-16.3); Mean Corpuscular Hemoglobin 34.1 pg (27-33); Mean Corpuscular Hgb Conc 33.6 g/dL (31-36); Mean Corpuscular Volume 101.6 fL (80-97); Red Blood Count 3.62 10^6/uL (4.06-5.63); Red Cell Distribution Width 14.7 % (12-17); White Blood Count 7.5 10^3/uL (3.6-10.2)
[2023-10-20 05:47] LABS: Mean Platelet Volume 9.7 fL (7.5-11.2); Platelet Count 91 10^3/uL (150-450)
[2023-10-20 05:48] LABS: ABS Basophils 0.1 10^3/uL (0.0-0.1); ABS Eosinophils 0.4 10^3/uL (0.0-0.5); ABS Lymphocytes 1.1 10^3/uL (1.0-4.8); ABS Neutrophils 5.1 10^3/uL (1.5-7.6); Eosinophil % 4.8 %
[2023-10-20 05:49] LABS: Potassium 4.5 mmol/L (3.5-5.0)
[2023-10-20 05:51] LABS: Albumin 3.9 g/dL (3.2-5.2); Albumin/Globulin Ratio 1.9 (1-3); Creatinine, Serum 1.11 mg/dL (0.67-1.17); Globulin 2.1 g/dL (2-4); Magnesium 1.8 mg/dL (1.9-2.7); Total Bilirubin 0.8 mg/dL (0.2-1.0); eGFR CKD-EPI 71.4 (>60)
[2023-10-20] MEDS ORDERED: Magnesium Sulfate 2 gm BAG 2 GM/50 ML BAG IVPB ONE (06:45)
[2023-10-20 07:58] VITALS: BP 125/70
== END 2023-10-20 09:20 | disposition home or self-care (01) | DRG 70 ==
LOC: ED 14:02 → EDHOLD 14:02 → OBSVTOIN 20:04 → ICU 20:04 → MEDTELE 23:08 → ICU 10-19 09:14
PROVIDERS: ADMIT Student in an Organized Health Care Education/Training Program; ATTEND Internal Medicine

== ENCOUNTER 2024-04-02 00:42 | Observation (INO) ==
[2024-04-02] MEDS: Albuterol 2.5mg/3 ml (0.083%) NEB.SOLN INH ONE ×2 (01:25→05:06)
[2024-04-02 01:33] LABS: ABS Basophils 0.1 10^3/uL (0.0-0.1); ABS Eosinophils 0.4 10^3/uL (0.0-0.5); ABS Lymphocytes 1.7 10^3/uL (1.0-4.8); ABS Monocytes 1.2 10^3/uL (0.0-1.1); ABS Neutrophils 9.2 10^3/uL (1.5-7.6); ABS Nucleated RBC 0.01 10^3/ul; Eosinophil % 2.9 %; Hematocrit 33.9 % (38-53); Hemoglobin 11.3 g/dL (13.2-16.3); Lymphocyte % 13.3 %; Mean Corpuscular Hemoglobin 33.9 pg (27-33); Mean Corpuscular Hgb Conc 33.2 g/dL (31-36); Mean Corpuscular Volume 102.2 fL (80-97); Mean Platelet Volume 8.3 fL (7.5-11.2); Nucleated Red Blood Cells % 0.1 %/100WBC (0.0-0.8); Platelet Count 130 10^3/uL (150-450); Red Blood Count 3.32 10^6/uL (4.06-5.63); Red Cell Distribution Width 14.4 % (12-17); White Blood Count 12.5 10^3/uL (3.6-10.2)
[2024-04-02 02:05] LABS: Albumin 3.9 g/dL (3.2-5.2); Albumin/Globulin Ratio 1.8 (1-3); Calcium 8.9 mg/dL (8.6-10.3); Creatinine, Serum 1.37 mg/dL (0.67-1.17); Globulin 2.2 g/dL (2-4); Potassium 4.1 mmol/L (3.5-5.0); Total Bilirubin 0.6 mg/dL (0.2-1.0); Total Protein 6.1 g/dL (6.4-8.9); eGFR CKD-EPI 55.5 (>60)
[2024-04-02 02:08] LABS: INR 1.47 (0.85-1.14)
[2024-04-02] MEDS: Lactated Ringers 1000 ml BAG 1,000 ML IV ONE (03:04)
[2024-04-02 03:23] LABS: High Sensitivity Troponin 1 Hr 10 pg/mL (<20)
[2024-04-02] MEDS: Iodixanol 320 (CONTRAST) 100 ML SDV IV ONE (04:37)
[2024-04-02] MEDS: Albuterol (2.5 MG) 0.5 % CONC 0.5 ML NEB.SOLN INH ONE (05:06)
[2024-04-02] MEDS: Piperacillin/Tazobac 3.375 BAG 3.375 GM/100 ML BAG IV ONE (06:17)
[2024-04-02] MEDS: HYDROmorphone 0.5 MG/0.5 ML SYRINGE IV ONE (06:50)
[2024-04-02] MEDS ORDERED: Nitroglycerin 0.3 mg TAB SL PRN (09:03)
[2024-04-02] MEDS ORDERED: HYDROcodone/ACETAMIN 5/325 mg TAB PO PRN (09:03)
[2024-04-02] MEDS: Azithromycin 500 mg/250 ml NS 500 MG/250 ML BAG IVPB ONE (09:12)
[2024-04-02] MEDS: Aspirin EC 81 mg TAB.EC (enteric coated) PO SCH (10:32)
[2024-04-02] MEDS: cefTRIAXone 1 gm/50 mL D5W 1 GM/50 ML BAG IV SCH (12:44)
[2024-04-02 12:57] LABS: Calcium 8.7 mg/dL (8.6-10.3); Creatinine, Serum 1.31 mg/dL (0.67-1.17); eGFR CKD-EPI 58.6 (>60)
[2024-04-02] MEDS: guaiFENesin 100 mg/5 ml LIQ unit dose cup PO PRN (14:23)
[2024-04-02] MEDS: Albuterol HFA INHALER 8 gm MDI INH PRN (18:07)
[2024-04-02] MEDS: HYDROcodone/ACETAMIN 5/325 mg TAB PO PRN (18:21)
[2024-04-03 06:54] LABS: Calcium 9.2 mg/dL (8.6-10.3); Creatinine, Serum 1.22 mg/dL (0.67-1.17); Potassium 4.1 mmol/L (3.5-5.0); eGFR CKD-EPI 63.8 (>60)
[2024-04-03 07:16] LABS: Hematocrit 36.3 % (38-53); Hemoglobin 12.1 g/dL (13.2-16.3); Mean Corpuscular Hemoglobin 35.1 pg (27-33); Mean Corpuscular Hgb Conc 33.3 g/dL (31-36); Mean Corpuscular Volume 105.3 fL (80-97); Mean Platelet Volume 8.5 fL (7.5-11.2); Platelet Count 118 10^3/uL (150-450); Red Blood Count 3.45 10^6/uL (4.06-5.63); Red Cell Distribution Width 14.8 % (12-17); White Blood Count 7.2 10^3/uL (3.6-10.2)
[2024-04-03 07:59] LABS: ABS Eosinophils 0.3 10^3/uL (0.0-0.5); ABS Lymphocytes 1.3 10^3/uL (1.0-4.8); ABS Monocytes 0.8 10^3/uL (0.0-1.1); ABS Neutrophils 4.8 10^3/uL (1.5-7.6); ABS Nucleated RBC 0.01 10^3/ul; Eosinophil % 3.9 %; Macrocytosis 1+; Nucleated Red Blood Cells % 0.1 %/100WBC (0.0-0.8)
[2024-04-03] MEDS: Vitamin THERAPEUTIC TAB PO SCH (08:17)
[2024-04-03] MEDS: Azithromycin 500 mg/250 ml NS 500 MG/250 ML BAG IVPB SCH (08:18)
[2024-04-03 14:14] VITALS: BP 169/92
[2024-04-03] MEDS: Sulfur Hexaflouride MICROSPHR 25 MG VIAL IV PRN (14:35)
== END 2024-04-03 17:31 | disposition home or self-care (01) ==
LOC: ED 00:42 → EDHOLD 00:42 → MEDTELE 10:22
PROVIDERS: ADMIT Hospitalist; ATTEND Hospitalist